=== PATIENT | female | born 1980 | race Caucasian/White ===

== ENCOUNTER 2022-09-23 13:02 | Emergency (ER) | payer MEDICAID, OTHER ==
[~2022-09-23] VITALS: Ht 172.7 cm; Wt 68.0 kg
[2022-09-23 13:44] VITALS: BP 136/82
== END 2022-09-23 23:43 | disposition left against medical advice (07) ==
LOC: ER 13:02 → EDBD 13:02 → ER 23:43
DX: M79.642 Pain in left hand (principal); E03.9 Hypothyroidism, unspecified; Z53.29 Procedure and treatment not carried out because of patient's decision for other reasons; Z88.2 Allergy status to sulfonamides; Z98.890 Other specified postprocedural states